=== PATIENT | male | born 1960 | race Hispanic/Latino ===

== ENCOUNTER → 2020-05-17 | Outpatient (CLI) | payer BC | END | disposition home or self-care (01) | LOC: SHCH 08:10 | PROVIDERS: ATTEND Internal Medicine Cardiovascular Disease | DX: R07.89 Other chest pain (principal) | CPT/HCPCS: 93306; 93356 ==

== ENCOUNTER → 2020-05-20 | Outpatient (CLI) | payer BC ==
[~2020-05-20] MED LIST: REGADENOSON 0.4 MG/5 ML PF SYG IVP SCH
== END | disposition home or self-care (01) ==
LOC: SHCH 08:22
PROVIDERS: ATTEND Internal Medicine Cardiovascular Disease
DX: R07.89 Other chest pain (principal)
CPT/HCPCS: 78452; 93017; 96374; A9500 ×2; J2785